=== PATIENT | female | born 1960 | race Caucasian/White ===

== ENCOUNTER 2018-03-22 20:26 | Emergency (ER) | payer OTHER ==
[~2018-03-22] VITALS: Ht 154.9 cm; Wt 59.9 kg
[2018-03-22 20:33] VITALS: BP 147/85
[2018-03-22] MEDS ORDERED: ELA50 PO (20:37)
[2018-03-22] MEDS ORDERED: LEVO0.083 PO (20:37)
--- NOTE | 2018-03-22 20:39 | NUR ---
PATIENT PRESENTS TO ED WITH LEFT EYE PAIN AND PRESSURE X1 HR. BROKEN BLOOD VESSEL SEEN IN CORNER OF LEFT EYE. NO DRAINAGED NOTED. PT STATES SHE IS UNCERTAIN IF SHE GOT ANYTING IN HERE EYE. SHE STARTD FEELING PRESSURE IN LEFT EYE. PT STATES NO BLURRED OR LOSS OF VISION TO LEFT EYE. DENIES N/V/D; SKIN IS PINK/WARM/DRY; AAOX4 WITH EVEN AND STEADY GAIT; LUNGS CLEAR BL; HR EVEN AND REGULAR; PT DENIES ANY FEVER, CP, SOB, OR COUGH AT THIS TIME; PATIENT STATES PAIN OF 4/10 AT THIS TIME; VSS; PATIENT POSITIONED FOR COMFORT; HOB ELEVATED; BEDRAILS UP X2; BED DOWN. ER MD MADE AWARE OF PT STATUS. CONTINUE TO MONITOR.
--- NOTE | 2018-03-22 20:39 | NUR ---
PT AMBULATED TO BED 11
[2018-03-22] MEDS ORDERED: FLUORESCEIN OPTH STRIP 0.6 MG OP ONE (21:15)
[2018-03-22] MEDS ORDERED: TETRACAINE HCL/PF 0.5% OPTH 4 ML BTL OP ONE (21:15)
[2018-03-22 21:56] VITALS: BP 147/85
--- NOTE | 2018-03-22 21:56 | NUR ---
Patient discharged with v/s stable. Written and verbal after care instructions given and explained. Patient verbalized understanding. Ambulatory with steady gait. All questions addressed prior to discharge. Advised to follow up with PMD.
== END 2018-03-22 21:56 | disposition home or self-care (01) ==
LOC: MED 20:26
DX: H11.32 Conjunctival hemorrhage, left eye (principal); E03.9 Hypothyroidism, unspecified
CPT/HCPCS: 99283